=== PATIENT | female | born 1960 | race Caucasian/White ===

== ENCOUNTER 2023-02-02 11:29 | Outpatient (CLI) | payer OTHER | END 2023-02-02 11:30 | disposition home or self-care (01) | LOC: CSHRAD 11:29 | PROVIDERS: ATTEND Surgery | DX: R05.9 Cough, unspecified (principal); F17.200 Nicotine dependence, unspecified, uncomplicated | CPT/HCPCS: 71046 ==

== ENCOUNTER 2023-09-04 00:48 | Observation (INO) | payer SELFPAY ==
[2023-09-04 01:36] LABS: ALT (SGPT) 21 U/L (8-55); AST (SGOT) 25 U/L (5-34); Albumin 4.4 g/dL (3.4-4.8); Alkaline Phosphatase 65 U/L (40-110); Anion Gap 22 mmol/L (10-20); BUN (Urea Nitrogen) 23 mg/dL (9.8-20.1); Bilirubin, Total 0.2 mg/dL (0.2-1.2); Calc. Creatinine Clearance 0 mL/min (70-130); Calcium 9.2 mg/dL (7.8-10.44); Carbon Dioxide 15 mmol/L (23-31); Chloride 108 mmol/L (98-107); Estimated GFR 69; Globulin 2.8 g/dL (2.4-3.5); Glucose 139 mg/dL (80-115); Lipase 53 U/L (8-78); Potassium 3.7 mmol/L (3.5-5.1); Protein, Total 7.2 g/dL (5.8-8.1); Sodium 141 mmol/L (136-145)
[2023-09-04 01:38] LABS: #Basophils 0.1 10x3/uL (0.0-0.2); #Eosinphils 0.2 10x3/uL (0.0-0.5); #Monocytes 1.1 10x3/uL (0.0-1.1); #Neutrophils 12.4 10x3/uL (1.5-8.4); %Basophils 0.4 % (0.0-2.0); %Eosinophils 1.1 % (0.0-6.0); %Lymphocytes 11.9 % (18.0-47.0); Hematocrit 38.8 % (34.9-44.5); Hemoglobin 12.5 g/dL (12.0-15.5); Mean Corpuscular HGB CONC 32.2 g/dL (32.0-36.0); Mean Corpuscular Volume 96.3 fl (81.6-98.3); Mean Platelet Volume 9.1 fl (7.4-10.4); Platelet Count 401 10x3/uL (150-450); RBC Distribution Width 14.6 % (11.5-14.5); Red Blood Cell (RBC) Count 4.03 10x6/uL (3.90-5.03); White Blood Cell (WBC) Count 15.7 10x3/uL (3.5-10.5)
[2023-09-04 01:42] LABS: Troponin I Less than 0.010 ng/mL (< 0.028)
[2023-09-04 01:56] LABS: SARS-CoV-2 NAA Rapid Test Not Detected (NotDetected)
[2023-09-04 02:35] LABS: Acetaminophen Less than 10 mcg/mL (10.0-30.0); Salicylate Less than 8.0 mg/dL (15.0-30.0)
[2023-09-04 02:40] LABS: Bilirubin Neg (Negative); Blood, Urine 25 (Negative); Glucose, Urine (Dipstick) Normal (Negative); Ketone, Urine Negative (Negative); Leukocyte Negative (Negative); Nitrite Negative (Negative); Protein, Urine (Dipstick) 15 mg/dl (Neg-Trace); Urobilinogen Normal mg/dL (Less than 2); pH, Urine 6.5 (5.0-9.0)
[2023-09-04 02:45] LABS: Clarity Clear (Clear)
[2023-09-04 02:46] LABS: CAUTI Indications for Culture Alt mental st,lethar
[2023-09-04 02:47] LABS: Bacteria/HPF Rare-Few HPF (None Seen); Mucous/LPF Rare LPF (<2+); Squamous Epithelial 0-3 HPF (0-3)
[2023-09-04 02:48] LABS: Urine Culture Reflex No No
[2023-09-04] MEDS ORDERED: Guaifenesin DM 100-10/5 ML UDCUP PO PRN (03:00)
[2023-09-04] MEDS ORDERED: Acetaminophen 325 MG TAB PO PRN (03:00)
[2023-09-04] MEDS ORDERED: Ondansetron PF 4 MG/2 ML Vial IVP PRN (03:00)
[2023-09-04] MEDS ORDERED: Calcium Carbonate 500 MG ChewTAB PO PRN (03:00)
[2023-09-04] MEDS ORDERED: Senokot S 8.6-50 MG TAB PO PRN (03:00)
[2023-09-04 03:02] LABS: Amphetamine Not Detected (NotDetected); Barbiturates Screen Not Detected (NotDetected); Benzodiazepine Screen Not Detected (NotDetected); Cocaine Metabolite Screen Not Detected (NotDetected); Methadone Not Detected (NotDetected); Methamphetamine Not Detected (NotDetected); Opiate Screen Not Detected (NotDetected); Oxycodone Screen Not Detected (NotDetected); Phencyclidine (PCP) Not Detected (NotDetected); THC/Cannabinoid Screen Detected (NotDetected); Tricyclic Screen Not Detected (NotDetected)
[2023-09-04 03:10] VITALS: BMI 27.4
[2023-09-04 03:29] LABS: Lactic Acid 1.8 mmol/L (0.5-2.2)
[2023-09-04 03:33] LABS: Alcohol Less than 10.0 mg/dL (Less than 10); CK (CPK) 134 U/L (29-168)
[2023-09-04] MEDS: Sodium Chloride 0.45% 1,000 ML IV SCH ×3 (04:07→21:35)
[2023-09-04] MEDS: Thiamine HCl 200 MG/2 ML VIAL SLOW IVP SCH (04:08)
[2023-09-04] MEDS ORDERED: Thiamine HCl 200 MG/2 ML VIAL ONE (04:10)
[2023-09-04] MEDS ORDERED: Potassium Chloride 20 MEQ TAB PO SCH ×2 (04:15→06:30)
[2023-09-04 07:31] LABS: #Basophils 0.1 10x3/uL (0.0-0.2); #Eosinphils 0.1 10x3/uL (0.0-0.5); #Monocytes 0.8 10x3/uL (0.0-1.1); #Neutrophils 10.5 10x3/uL (1.5-8.4); %Basophils 0.4 % (0.0-2.0); %Eosinophils 0.7 % (0.0-6.0); %Lymphocytes 16.2 % (18.0-47.0); %Monocytes 5.8 % (0.0-10.0); %Neutrophils 76.5 % (40.0-75.0); Hemoglobin 11.7 g/dL (12.0-15.5); Mean Corpuscular HGB CONC 33.4 g/dL (32.0-36.0); Mean Corpuscular Hemoglobin 31.7 pg (27.0-33.0); Mean Corpuscular Volume 94.9 fl (81.6-98.3); Platelet Count 379 10x3/uL (150-450); RBC Distribution Width 14.6 % (11.5-14.5); Red Blood Cell (RBC) Count 3.69 10x6/uL (3.90-5.03); White Blood Cell (WBC) Count 13.8 10x3/uL (3.5-10.5)
[2023-09-04 07:56] LABS: Troponin I Less than 0.010 ng/mL (< 0.028)
[2023-09-04 08:29] LABS: ALT (SGPT) 17 U/L (8-55); AST (SGOT) 19 U/L (5-34); Albumin 3.8 g/dL (3.4-4.8); Alkaline Phosphatase 57 U/L (40-110); Anion Gap 14 mmol/L (10-20); BUN (Urea Nitrogen) 19 mg/dL (9.8-20.1); Bilirubin, Total 0.4 mg/dL (0.2-1.2); Calc. Creatinine Clearance 86 mL/min (70-130); Calcium 8.2 mg/dL (7.8-10.44); Carbon Dioxide 22 mmol/L (23-31); Chloride 108 mmol/L (98-107); Estimated GFR 87; Globulin 2.5 g/dL (2.4-3.5); Glucose 113 mg/dL (80-115); Magnesium 1.6 mg/dL (1.6-2.6); Protein, Total 6.3 g/dL (5.8-8.1); Sodium 140 mmol/L (136-145)
[2023-09-04] MEDS ORDERED: DULoxetine 20 MG CAP PO SCH (09:00)
[2023-09-04] MEDS ORDERED: Potassium Chloride 20 MEQ TAB ONE (09:31)
[2023-09-04] MEDS ORDERED: Iopamidol 370 76% 100 ML VIAL ONE (09:51)
[2023-09-04] MEDS ORDERED: Folic Acid 1 MG TAB ONE (10:07)
[2023-09-04] MEDS ORDERED: Famotidine/PF 20 mg/2ml Vial ONE (10:07)
[2023-09-04] MEDS ORDERED: Famotidine 20 MG TAB ONE (10:15)
[2023-09-04] MEDS: Famotidine/PF 20 mg/2ml Vial SLOW IVP SCH ×2 (10:41→21:30)
[2023-09-04] MEDS: Folic Acid 1 MG TAB PO SCH (10:41)
[2023-09-04] MEDS: Multivitamin W/ Minerals 1 TAB PO SCH (10:42)
[2023-09-04 13:59] LABS: Hemoglobin A1c 6.4 % (4.0-6.0)
[2023-09-05] MEDS: Thiamine HCl 200 MG/2 ML VIAL SLOW IVP SCH (02:47)
[2023-09-05 05:32] LABS: #Eosinphils 0.3 10x3/uL (0.0-0.5); #Monocytes 0.6 10x3/uL (0.0-1.1); #Neutrophils 3.8 10x3/uL (1.5-8.4); %Basophils 0.4 % (0.0-2.0); %Eosinophils 3.4 % (0.0-6.0); %Lymphocytes 35.8 % (18.0-47.0); %Monocytes 8.3 % (0.0-10.0); %Neutrophils 51.7 % (40.0-75.0); Hematocrit 34.5 % (34.9-44.5); Hemoglobin 11.4 g/dL (12.0-15.5); Mean Corpuscular Hemoglobin 31.1 pg (27.0-33.0); Mean Platelet Volume 9.3 fl (7.4-10.4); Platelet Count 335 10x3/uL (150-450); RBC Distribution Width 14.5 % (11.5-14.5); Red Blood Cell (RBC) Count 3.67 10x6/uL (3.90-5.03); White Blood Cell (WBC) Count 7.4 10x3/uL (3.5-10.5)
[2023-09-05] MEDS: Sodium Chloride 0.45% 1,000 ML IV SCH (06:45)
[2023-09-05] MEDS: Multivitamin W/ Minerals 1 TAB PO SCH (08:43)
[2023-09-05] MEDS: Famotidine/PF 20 mg/2ml Vial SLOW IVP SCH (08:44)
[2023-09-05] MEDS: Folic Acid 1 MG TAB PO SCH (08:44)
[2023-09-05] MEDS ORDERED: DULoxetine 30 MG CAP PO SCH (09:00)
[2023-09-05 13:52] VITALS: TEMP 98.2
[2023-09-05 14:05] VITALS: BP 162/68
== END 2023-09-05 12:10 | disposition home or self-care (01) ==
LOC: CSHERS 00:48 → CSHERHOLD 02:51 → INTOOBSV 02:51 → CSHTELE 13:06
PROVIDERS: ADMIT Student in an Organized Health Care Education/Training Program; ATTEND Nurse Practitioner Acute Care
DX: R55 Syncope and collapse (principal); E87.29 Other acidosis; M79.7 Fibromyalgia; I10 Essential (primary) hypertension; F17.210 Nicotine dependence, cigarettes, uncomplicated; R73.9 Hyperglycemia, unspecified; F10.10 Alcohol abuse, uncomplicated; E86.0 Dehydration; Z90.49 Acquired absence of other specified parts of digestive tract; Z88.0 Allergy status to penicillin; Z79.899 Other long term (current) drug therapy
CPT/HCPCS: 36415; 36416; 70450; 71045; 71275; 80053; 80306; 80307; 81001; 82010; 82550; 83036; 83605; 83690; 83735; 84443; 84484; 85025; 85379; 87040; 93005; 93306; 96372; 96374; 96375; 96376; G0378; J1650; J3411; Q9967; S0028